=== PATIENT | male | born 1985 | race Caucasian/White ===

== ENCOUNTER → 2016-06-19 | Outpatient (CLI) | payer OTHER ==
[~2016-06-19] MED LIST: BACTRIM,SEPT1 TABLET PO; DITROPAN XL10 MG PO; JANTOVEN5 M1 J-TUBE
== END | disposition home or self-care (01) ==
LOC: RAD 09:17
DX: N31.9 Neuromuscular dysfunction of bladder, unspecified (principal); N27.0 Small kidney, unilateral; Z87.440 Personal history of urinary (tract) infections
CPT/HCPCS: 76770

== ENCOUNTER → 2017-05-26 | Outpatient (CLI) | payer OTHER | END | disposition home or self-care (01) | LOC: RAD 13:17 | DX: N26.1 Atrophy of kidney (terminal) (principal); N28.89 Other specified disorders of kidney and ureter; Z87.440 Personal history of urinary (tract) infections | CPT/HCPCS: 76770 ==